=== PATIENT | female | born 1965 | race Caucasian/White ===

== ENCOUNTER 2019-09-19 13:06 | Inpatient (IN) | payer OTHER ==
[~2019-09-19] VITALS: Ht 170.2 cm; Wt 78.0 kg
[2019-09-19 13:29] VITALS: BP 135/87
[2019-09-19 13:33] LABS: URINE BLOOD NEGATIVE (Negative); URINE CLARITY CLEAR; URINE COLOR YELLOW; URINE GLUCOSE-RANDOM NEGATIVE (Negative); URINE KETONES NEGATIVE (Negative); URINE NITRITE-REFLEX NEGATIVE (Negative); URINE PROTEIN NEGATIVE (Negative); URINE SPECIFIC GRAVITY 1.015 (1.005-1.030)
[2019-09-19 13:34] LABS: ICTOTEST (BILI CONFIRMATORY) Negative (Negative); URINE BILIRUBIN 1+ (Negative); URINE LEUKOCYTES-REFLEX 2+ (Negative)
[2019-09-19 13:48] LABS: SQUAMOUS 4-10 Moderate /LPF (0-3)
[2019-09-19 13:49] LABS: BACTERIA-REFLEX >30 Many /HPF (None Seen); CASTS None Seen /LPF (None Seen); CRYSTALS None Seen /LPF (None Seen); URINE RBC None Seen /HPF (0-2); URINE WBC-REFLEX 6-15 Few /HPF (0-5)
[2019-09-19 13:50] LABS: AMORPHOUS URATES Few /LPF (None Seen)
[2019-09-19 14:02] LABS: ABSOLUTE BASOPHILS 0.1 thou/uL (0.0-0.2); ABSOLUTE EOSINOPHILS 0.2 thou/uL (0.0-0.7); ABSOLUTE LYMPHOCYTES 1.7 thou/uL (0.8-5.3); ABSOLUTE NEUTROPHILS 4.4 thou/uL (1.6-8.1); EOSINOPHILS 2.9 %; HEMATOCRIT 45.2 % (37.0-47.0); HEMOGLOBIN 15.8 gm/dL (12.0-15.0); LYMPHOCYTES 22.8 %; MCH 37.1 pg (26.0-34.0); MCHC 34.8 g/dL (28.0-37.0); MCV 106.5 fL (80.0-100.0); MONOCYTES 14.1 %; MPV 9.3 fl. (7.2-11.1); NUCLEATED RBCS 0 /100WBC; PLATELET COUNT* 71 thou/uL (150-400); POLYS 59.2 %; RBC 4.25 mil/uL (4.20-5.00); RDW-CV 13.8 % (10.5-14.5); WBC 7.4 thou/uL (4.0-11.0)
[2019-09-19 14:12] LABS: APTT 30.5 Seconds (25.0-31.3); CALCIUM 8.3 mg/dL (8.5-10.1); CREATININE 0.7 mg/dL (0.6-1.3); INR 1.2; POTASSIUM 3.3 mmol/L (3.5-5.1); PROTIME 12.7 Seconds (9.20-11.50)
[2019-09-19 14:16] LABS: ALBUMIN 2.7 g/dL (3.4-5.0); TOTAL BILIRUBIN 2.3 mg/dL (<0.1-1.0); TOTAL PROTEIN 7.6 g/dL (6.4-8.2)
[2019-09-19 16:04] VITALS: BP 120/71
[2019-09-19 16:42] VITALS: BP 142/76
--- NOTE | 2019-09-19 17:51 | NUR ---
PATIENT ARRIVED FROM ER AT 1615. PATIENT SETTLED TO ROOM. ASSESSMENT, HISTORY AND NVITALS COMPLETED AND DOCUMENTED. PATIENT DENIES ANY PAIN. PATIENT HAS EXCELLENT APPETITE. PATIENT IS UP AD ANDRES IN ROOM. PATIENT AWARE SHE IS TO HAVE NOTHING TO EAT OR DRINK AFTER MIDNIGHT FOR PARACENTESIS TOMORROW. PATIENT DENIES ANY NEEDS AT THIS TIME. CALL LIGHT WITHIN REACH.
[2019-09-19 19:05] LABS: MAGNESIUM 1.7 mg/dL (1.8-2.4); PHOSPHORUS* 3.6 mg/dL (2.5-4.9)
[2019-09-19 19:21] LABS: DIRECT BILIRUBIN 1.1 mg/dL (<0.1-0.3); TOTAL BILIRUBIN 2.2 mg/dL (<0.1-1.0)
[2019-09-19] MEDS ORDERED: FIBERCON625 M1 PO (19:33)
[2019-09-19 22:11] VITALS: BP 114/72
[2019-09-20 04:24] LABS: HEMATOCRIT 38.2 % (37.0-47.0); MCH 35.7 pg (26.0-34.0); MCHC 34.3 g/dL (28.0-37.0); MCV 104.2 fL (80.0-100.0); MPV 9.2 fl. (7.2-11.1); RBC 3.67 mil/uL (4.20-5.00); RDW-CV 13.3 % (10.5-14.5); WBC 6.3 thou/uL (4.0-11.0)
[2019-09-20 04:32] LABS: HEMOGLOBIN 13.1 gm/dL (12.0-15.0)
[2019-09-20 04:37] LABS: CALCIUM 8.1 mg/dL (8.5-10.1); CREATININE 0.7 mg/dL (0.6-1.3); POTASSIUM 3.6 mmol/L (3.5-5.1)
--- NOTE | 2019-09-20 05:10 | NUR ---
PATIENT REQUESTED SLEEP AID ABOUT 2200. ORDER RECEIVED FOR MELATONIN. PT UP AD ANDRES TO BATHROOM. PT DENIES PAIN. ABDOMEN FIRM, DISTENDED. PT MADE NPO AT MIDNIGHT FOR POSSIBLE PARENCENTISIS TODAY. FREQUENTLY USED ITEMS AND CALL LIGHT WITHIN REACH. SIDERAILS UPX2. WILL CONTINUE TO MONITOR.
--- NOTE | 2019-09-20 12:25 | NUR ---
PT A&OX3 VSS. PT RESTING IN ROOM WITH CALL LIGHT IN REACH. DIET ADVANCED TO HEART HEALTHY FOLLOWING PROCEDURE. PT TO U/S FOR EXAM OF R NECK. PT TO IR FOR PARACENTESIS OF ABDOMEN. RN REPORTED 2900 CC FLUID REMOVED DURING PROCEDURE. PT REQUESTING PAIN PILL, DR YEUNG NOTIFIED FOR ORDERS. REPORT CALLED TO MAYA CACERES OF TELE UNIT FOR TRANSFER OF PT CARE. PT PREVIOUSLY REPORTED DAILY ETOH USE UPON ADMISSION, PT TO BE MOVED TO TELE FOR OBSERVATION. PT TRANSPORTED IN WC WITH NURSING STAFF.
[2019-09-20 12:45] VITALS: BP 105/69
--- NOTE | 2019-09-20 12:50 | NUR ---
cm completed initial assessment to discuss d/c planning. pt lives at home. 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 NO hx w/HH of SNF. pt has support network. jay ariza/rosalba damon w/pt re: medicaid. cm to remain avail to assist as needed.
[2019-09-20 14:42] LABS: AMP/METHAMP Negative (Negative); BARBITURATES Negative (Negative); BENZODIAZEPINES Negative (Negative); COCAINE Negative (Negative); METHADONE Negative (Negative); OPIATES Negative (Negative); PCP Negative (Negative); THC Negative (Negative)
--- NOTE | 2019-09-20 16:26 | NUR ---
PT ARRIVED TO ROOM 233 AT APPROX 1215. PT A/O X4, C/O SOME ABDOMINAL PAIN, MEDS GIVEN PER DEC. I HAVE REVIEWED AND AGREE WTIH THE ASSESMENT OF CELESTINO CACERES FROM THIS AM. PT HAD BANDAID COVERING INCISION FROM PARACENTESIS TODAY. PT STATES "I DONT FEEL LIKE MY STOMACH HAS GONE DOWN AT ALL, HOW LONG DOES THAT TAKE." PTS ABDOMEN DISTENDED BUT SOFT. PT UP AD ANDRES. FLU SHOT GIVEN AND NICOTINE PATCH PROVIDED. PT CALLS APPROPRIALTY FOR NEEDS.
[2019-09-20 17:09] VITALS: BP 134/72
[2019-09-20 18:28] LABS: BF RBC <1000 /mm3; TOTAL CELL COUNT 499 /mm3
[2019-09-20 18:32] LABS: CLARITY HAZY; TOTAL VOLUME 2900 ml
[2019-09-20 19:22] LABS: BF LYMPHOCYTES 60 %; BF POLYS 40 %; BF TISSUE 25 /100 WBC; SOURCE ASCITES
[2019-09-20 19:23] LABS: BF OTHER CYTO TO FOLLOW
[2019-09-21 00:38] VITALS: BP 104/62
[2019-09-21 04:30] VITALS: BP 105/72
[2019-09-21 08:00] VITALS: BP 113/71
[2019-09-21 09:08] LABS: ABSOLUTE BASOPHILS 0.1 thou/uL (0.0-0.2); ABSOLUTE EOSINOPHILS 0.2 thou/uL (0.0-0.7); ABSOLUTE LYMPHOCYTES 1.6 thou/uL (0.8-5.3); ABSOLUTE MONOCYTES 0.7 thou/uL (0.0-1.2); ABSOLUTE NEUTROPHILS 4.2 thou/uL (1.6-8.1); BASOPHILS 1.4 %; EOSINOPHILS 3.1 %; HEMATOCRIT 43.3 % (37.0-47.0); LYMPHOCYTES 23.2 %; MCH 36.1 pg (26.0-34.0); MCV 103.1 fL (80.0-100.0); MONOCYTES 10.3 %; MPV 8.5 fl. (7.2-11.1); NUCLEATED RBCS 0 /100WBC; PLATELET COUNT* 87 thou/uL (150-400); RDW-CV 13.2 % (10.5-14.5); WBC 6.8 thou/uL (4.0-11.0)
[2019-09-21 09:09] LABS: HEMOGLOBIN 15.2 gm/dL (12.0-15.0)
[2019-09-21 09:22] LABS: ALBUMIN 2.5 g/dL (3.4-5.0); CALCIUM 8.3 mg/dL (8.5-10.1); CREATININE 0.7 mg/dL (0.6-1.3); POTASSIUM 3.3 mmol/L (3.5-5.1); TOTAL PROTEIN 7.2 g/dL (6.4-8.2)
[2019-09-21 11:11] LABS: HEPATITIS B SURFACE AG Negative (Negative)
[2019-09-21 12:16] VITALS: BP 109/79
[2019-09-21 16:23] VITALS: BP 124/72
--- NOTE | 2019-09-21 16:54 | NUR ---
ASSUMED PT CARE AT 0730, FULL ASSESMENT DONE CHARTED. PT A/O X4, DENIES ABDOMINAL PAIN, VSS, SR ON THE MONITOR. PT MADE NPO THIS AM AND HAD NECK LYMPH BIOPSY AND ABD US THIS AFTERNOON. PT TO HAVE EGD TOMORROW. NPO AFTER MIDNIGHT. ATTEMPTED TO REPLACE K+ IV, PT C/O BURNING, WILL SWITCH TO PO WHEN NOT NPO. PT UPDATED ON PLAN, FAMILY AT BEDSIDE. REPORT GIVEN TO LUCAS CACERES.
[2019-09-22] VITALS: BP 118/70
[2019-09-22 04:00] VITALS: BP 107/72
[2019-09-22 04:25] LABS: INR 1.4; PROTIME 14.3 Seconds (9.20-11.50)
[2019-09-22 04:31] LABS: ABSOLUTE BASOPHILS 0.1 thou/uL (0.0-0.2); ABSOLUTE EOSINOPHILS 0.2 thou/uL (0.0-0.7); ABSOLUTE LYMPHOCYTES 1.7 thou/uL (0.8-5.3); ABSOLUTE MONOCYTES 0.8 thou/uL (0.0-1.2); ABSOLUTE NEUTROPHILS 4.4 thou/uL (1.6-8.1); BASOPHILS 0.9 %; EOSINOPHILS 2.7 %; HEMOGLOBIN 13.4 gm/dL (12.0-15.0); LYMPHOCYTES 23.3 %; MCH 35.7 pg (26.0-34.0); MCHC 34.4 g/dL (28.0-37.0); MCV 103.9 fL (80.0-100.0); MONOCYTES 11.4 %; MPV 8.6 fl. (7.2-11.1); NUCLEATED RBCS 0 /100WBC; PLATELET COUNT* 88 thou/uL (150-400); POLYS 61.7 %; RBC 3.76 mil/uL (4.20-5.00); RDW-CV 13.2 % (10.5-14.5); WBC 7.1 thou/uL (4.0-11.0)
[2019-09-22 04:49] LABS: ALBUMIN 2.2 g/dL (3.4-5.0); CALCIUM 8.1 mg/dL (8.5-10.1); CREATININE 0.6 mg/dL (0.6-1.3); POTASSIUM 3.4 mmol/L (3.5-5.1); TOTAL BILIRUBIN 1.4 mg/dL (<0.1-1.0); TOTAL PROTEIN 6.3 g/dL (6.4-8.2)
[2019-09-22 05:10] LABS: % SATURATION 21 % (20-39); IRON 48 ug/dL (50-175)
[2019-09-22 08:00] VITALS: BP 113/71
[2019-09-22 10:30] VITALS: BP 113/71
[2019-09-22 13:41] LABS: ABSOLUTE BASOPHILS 0.1 thou/uL (0.0-0.2); ABSOLUTE EOSINOPHILS 0.2 thou/uL (0.0-0.7); ABSOLUTE LYMPHOCYTES 1.4 thou/uL (0.8-5.3); ABSOLUTE MONOCYTES 0.6 thou/uL (0.0-1.2); ABSOLUTE NEUTROPHILS 4.2 thou/uL (1.6-8.1); BASOPHILS 0.8 %; EOSINOPHILS 2.5 %; HEMATOCRIT 41.3 % (37.0-47.0); HEMOGLOBIN 14.3 gm/dL (12.0-15.0); MCHC 34.7 g/dL (28.0-37.0); MCV 103.6 fL (80.0-100.0); MONOCYTES 8.8 %; MPV 8.6 fl. (7.2-11.1); NUCLEATED RBCS 0 /100WBC; PLATELET COUNT* 90 thou/uL (150-400); POLYS 65.9 %; RBC 3.98 mil/uL (4.20-5.00); RDW-CV 13.4 % (10.5-14.5); WBC 6.4 thou/uL (4.0-11.0)
[2019-09-22 13:59] LABS: ALBUMIN 2.4 g/dL (3.4-5.0); CALCIUM 8.5 mg/dL (8.5-10.1); CREATININE 0.6 mg/dL (0.6-1.3); POTASSIUM 3.8 mmol/L (3.5-5.1); TOTAL BILIRUBIN 1.4 mg/dL (<0.1-1.0); TOTAL PROTEIN 6.9 g/dL (6.4-8.2)
--- NOTE | 2019-09-22 14:24 | NUR ---
CONTINUE TO FOLLOW, MET WITH PT RE: REF FROM DR WALTERS TO ASSIST WITH RESOURCES. PER [employer], PT NOT ELIGIBLE FOR MEDICAID, STILL WORKING. PT STATES SHE HAS LOW INCOME. GAVE RESOURCES FOR [facility] [employer], MEDICAID APPLICATION, [employer] DISABILITY [facility] RESOURCES. PT ASKING TO GO HOME TODAY AND WANTING ASSIST WITH SCRIPTS AT DC. NO DC ORDERS FOR TODAY NOTED. UPDATED RN
[2019-09-22 16:00] VITALS: BP 104/66
[2019-09-22 17:11] LABS: BODY FLUID PROTEIN 1.7 g/dL (())
[2019-09-22 18:06] LABS: IgA 654 mg/dL (87-352); IgG 1410 mg/dL (700-1600); IgM 467 mg/dL (26-217)
--- NOTE | 2019-09-22 18:42 | NUR ---
ASSUMED PT CARE AT 0730. ABLE TO MAKE NEEDS KNOWN. NO C/O PAIN OR DISCOMFORT. PT HAD EGD TODAY, SEE RESULTS. STARTED NEW MEDICATIONS AND WANTED PT TO STAY AN EXTRA DAY TO MONITOR SIDE EFFECTS. PT RESTING IN BED WITH FAMILY AT THIS TIME. FLAT AFFECT, UPSET THAT SHE HAD TO STAY ANOTHER DAY. WILL CONTINUE TO MONITOR.
[2019-09-22 20:00] VITALS: BP 109/75
--- NOTE | 2019-09-22 20:00 | NUR ---
RECEIVED REPORT AND ASSUMED CARE OF PT, ASSESSMENT COMPLETED. NO COMPLAINTS VOCIED. TELEMETRY ON SHOWING SR. ANXIOUS TO GO HOME BUT KNOWS BP NEEDS TO BE MONITORED DUE TO NEW MEDS. WILL CONT TO MONITOR AND ASSIST NEEDED.
[2019-09-22 22:59] LABS: SOURCE PERITONEAL
[2019-09-23] VITALS: BP 89/57
[2019-09-23 04:00] VITALS: BP 89/54
--- NOTE | 2019-09-23 06:14 | NUR ---
AWAKE OCC DURING NIGHT. GAIT STEADY TO AND FROM BR. NO CHANGE IN ASSESSMENT. TELEMETRY CONT TO SHOW SR. HS GOALS OF REST AND SAFETY ACHIEVED. HOURLY ROUNDING OBSERVED.
[2019-09-23 08:00] VITALS: BP 83/48
[2019-09-23] MEDS ORDERED: PROPRANOLOL 1010 MG PO (10:48)
[2019-09-23] MEDS ORDERED: LASIX 40 MG TAB40 MG PO (10:50)
[2019-09-23] MEDS ORDERED: ALDACTONE100 MG PO (10:51)
[2019-09-23 12:08] LABS: CERULOPLASMIN 28.1 mg/dL (19.0-39.0)
[2019-09-23 12:23] VITALS: BP 92/62
[2019-09-23] MEDS ORDERED: LEVAQUIN 500 M500 M1 PO (12:37)
[2019-09-23] MEDS ORDERED: PRENATAL PO (12:37)
[2019-09-23] MEDS ORDERED: HYDROCODON-ACE1 EAC7 PO (12:37)
[2019-09-23] MEDS ORDERED: SPIRONOLACTONE25 MG PO (12:37)
[2019-09-23] MEDS ORDERED: INDERAL 20 MG T20 M1 PO (12:37)
[2019-09-23 13:10] LABS: ANA INTERPRETATION Positive (Negative)
[2019-09-23 13:14] VITALS: BP 92/62
--- NOTE | 2019-09-23 14:07 | PATH ---
[address] [address] PATHOLOGY RPT PROCEDURE Name: SILVANA MEEKS Room: [place] [address] ADM IN .R.#: [id number] Admission: 09/19/19 Date of : 63 Discharge: Report #: [id number] Path Case #: [id number] Note [facility] Accession Number: [id number] TESTS RESULT FLAG UNITS REF RANGE LAB Clinician Provided Cytology Information No. of containers..01 Other (Miscellaneous) Source: ASCITES RUQ DIAGNOSIS: 02 ASCITES RUQ NEGATIVE FOR MALIGNANT CELLS. REACTIVE MESOTHELIAL CELLS AND INFLAMMATORY CELLS, PREDOMINANTLY CHRONIC. THIS INTERPRETATION INCLUDES EVALUATION OF A CELL BLOCK. Signed out by: 02 Elkin Blair MD, Pathologist NPI- [id number] Performed by: 01 Samra Chan, [employer] ([facility]) Gross description: 01 35ML, YELLOW, CLOUDY /LCS 09/20/2019 1729 Local FLAG LEGEND: L-Low Normal,H-High Normal,LL-Alert Low,HH-Alert High <-Panic Low,>-Panic High,A-Abnormal,AA-Critical Abnormal Performed at: [address] [place] [address] Tino Mccord MD, [address] [place] [phone] Eklin Blair MD, Specimen Comment: A courtesy copy of this report has been sent to [phone] Specimen Comment: [id number] Specimen Comment: Report sent to Performed at: [address], [place], [place] [id number] MD Tino Mccord MD Phone: [phone]
--- NOTE | 2019-09-23 14:59 | NUR ---
ASSUMED PT CARE AT 0730. ASSESSMENT COMPLETED CHARTED. ABLE TO MAKE NEEDS KNOWN. DISCHARGE APPROVED, NO C/O PAIN OR DISCOMFORT. UP AD ANDRES IN ROOM. IV AND HEART MONITOR REMOVED. RESTING IN BED AT THIS TIME WAITING ON HER RIDE. PAPERWORK COMPLETED AND SIGNED. NO COMMENTS, QUESTIONS, OR CONCERNS NOTED.
--- NOTE | 2019-09-23 15:11 | NUR ---
ORDERS NOTED FOR DC, MET WITH PT. STATES UNABLE TO AFFORD MEDS. WAS ABLE TO ASSIST PT WITH 4 OF HER SCRIPTS. ATTEMPTED TO FAX TO [facility] UNDER ASSISTANCE PROGRAM BUT FAX WOULDN'T GO THRU AFTER MULTIPLE ATTEMPTS. NURSE TO GIVE PT COPY OF FORM AND SCRIPTS CALLED INTO [facility] FOR 1 MONTH SUPPLY OF LASIX, SPIRONOLACTONE, LEVAQUIN-7DAYS AND PROPANOLOL. PT AWARE. HAS OTHER RESOURCES.
--- NOTE | 2019-09-23 18:06 | PATH ---
[address] [address] PATHOLOGY RPT PROCEDURE Name: AMAYA MEEKS Room: [address] IN M.R.#: [id number] Admission: 09/19/19 Date of : 63 Discharge: 09/23/19 Report #: [id number] Path Case #: [id number] [facility] Accession Number: [id number] . 01 Material submitted: . lymph node - LYMPH NODE, RIGHT NECK. Modifiers: right, neck . 01 Clinical history: . Right neck mass 1.69 x 2.05 x 1.32 cm . 02 Diagnosis: Tissue submitted as "lymph node, right neck", image guided biopsy: - Scant benign hyperkeratotic squamous epithelium and keratin debris suggesting epidermal inclusion cyst, without lymphoid tissue present. See comment. (ROSANA:elis; 09/23/2019) QTP 09/23/2019 1354 Local . 02 Comment: Sections of the right neck "lymph node" show a fragment of benign non-atypical squamous epithelium with prominent hyperkeratosis as well as abundant keratotic debris, without parakeratosis or atypia seen and is most consistent with an epidermal inclusion cyst although the differential would include a branchial cleft cyst. . Flow cytometry studies are pending on the specimen submitted in RPMI and will be the subject of an addendum report. (ROSANA:pit; 09/23/2019) . 02 Electronically signed: . Elkin Blair MD, Pathologist NPI- [id number] . 01 Gross description: . Received in formalin labeled "Amaya Meeks, lymph node-right neck," are multiple segments of ching soft tissue measuring 0.4 x 0.2 x 0.1 cm in aggregate dimensions. The specimen is filtered and entirely submitted in cassette A1. . Received in RPMI solution labeled "Amaya Meeks, right node right neck," is a single needle core of ching soft tissue measuring approximately 0.8 cm in length and less than 0.1 cm diameter. The specimen is forwarded to an outside laboratory for further testing. (TSD; 09/21/2019) TOB/TOB 09/23/2019 1032 Local . 02 Pathologist provided ICD-10: [place] [address] PATHOLOGY RPT PROCEDURE Name: AMAYA MEEKS Room: [place] [address] DIS IN M.R.#: [id number] Admission: 09/19/19 Date of : 63 Discharge: 09/23/19 Report #: [id number] Path Case #: [id number] R22.1, L98.8 . 02 CPT . 924491 Specimen Comment: A courtesy copy of this report has been sent to [phone] Specimen Comment: [phone] Specimen Comment: Report sent to and Dr.DE ROBER VALLECILLO Performed at: [address] [facility] [address], [place], [place] [id number] MD Tino Mccord MD Phone: [phone] Performed at: 02 [facility] [place] [facility] Jennifer Kruse, [place] [id number] MD Elkin Blair MD Phone: [phone]
--- NOTE | 2019-09-24 22:46 | CON ---
[address] [address] CONSULTATION Name: MEEKSSILVANA Mt Room: [address] IN M.R.#: [id number] Admission: 09/19/19 Attend Phys: Alexis Ramirez Discharge: 09/23/19 Date of : 63 Report #: [id number] THIS REPORT FOR: //name// CC: MICHAEL physician/PCP Alexis Gonzales DICTATED BY: Zuleika Garcia [facility] DATE OF SERVICE: 09/21/2019 The patient does not have a PCP. Please note at the time of this dictation, the patient was seen and physically examined by myself. REASON FOR CONSULTATION: Cirrhosis and abdominal pain. HISTORY OF PRESENT ILLNESS: This 54-year-old female presenting to the Emergency Room with having 8 days of abdominal bloating and distention. She states it was becoming more uncomfortable. She was having some intermittent gas and she has never had this happened before. She denies any constipation or diarrhea. She states she did go to [place] a couple of years ago and she thought she had a colonoscopy or something was wrong with her colon at that time. In reviewing her records, it was noted that she had acute diverticulitis in the sigmoid colon. She was treated with Cipro and Flagyl at that time. She has not ever had an EGD or colonoscopy done in the past. It is also noted that the patient does drink 6 beers typically daily and has for quite some time. ALLERGIES: No known drug allergies. MEDICATIONS FROM HOME: None. PAST MEDICAL HISTORY: Negative except for diverticulitis in 10/2016. PAST SURGICAL HISTORY: Negative. FAMILY HISTORY: Negative for any GI or female cancers. SOCIAL HISTORY: She does smoke a half a pack per day and she drinks 6 beers on a daily basis. REVIEW OF SYSTEMS: Twelve-point review of systems is essentially negative except what is mentioned in the HPI. PHYSICAL EXAMINATION: VITAL SIGNS: Temperature 36.8, pulse 82, respirations 18, [place] [address] CONSULTATION Name: MEEKSSILVANA Mt Room: [address] IN [facility].#: [id number] Admission: 09/19/19 Attend Phys: Alexis franco yesy [place] Discharge: 09/23/19 Date of : 63 Report #: [id number] 105/72. HEART: Regular rate and rhythm. LUNGS: Diminished, but clear. ABDOMEN: Soft, positive bowel sounds in all 4 quadrants with no masses or tenderness noted. LABORATORY DATA: Hemoglobin 15.2, white count is 6.8, MCV is 103. GFR is 87. PT is 12.7 and INR is 1.2. Total bilirubin 2, alkaline phosphatase 143, ALT is 26, AST is 58. CT of the abdomen and pelvis shows cirrhosis with moderate amount of abdominal and pelvic ascites, shows lobulated masses in the lumen of the gallbladder with probable represent radiolucent gallstones rather than polyps or gallbladder neoplasm, diverticulosis noted of the left colon. The patient had a paracentesis done yesterday, 2900 mL pulled off and waiting for culture and sensitivity as well as total protein and bilirubin on her ascitic fluid. IMPRESSION: 1. Cirrhosis. 2. Ascites. 3. Abnormal CT of the gallbladder. 4. Thrombocytopenia. 5. Alcohol abuse. 6. Right neck mass. PLAN: 1. Ultrasound of the abdomen to evaluate her gallbladder thoroughly. 2. EGD tomorrow. 3. Recommend colon since she has never had one. 4. Await labs regarding her ascitic fluid. 5. Further recommendations to be made after Dr. Merritt sees the patient later today. Thank you for allowing us to participate in this patient's care. Please do not hesitate to call with any questions in regard to this consult. <ELECTRONICALLY SIGNED> By: Hiram Merritt DO 09/24/19 2246 [id number] [id number] Merritt DO /nt
== END 2019-09-23 14:50 | disposition home or self-care (01) | DRG 433 ==
LOC: M.ERS 13:06 → M.2W 15:10 → M.TBA-ER 15:10 → M.3W 16:38 → M.2W 09-20 12:40
PROVIDERS: Internal Medicine; Internal Medicine Gastroenterology; Nurse Practitioner Family; ADMIT Family Medicine
PROC: 0W9G3ZZ Drainage of Peritoneal Cavity, Percutaneous Approach (ICD-10-PCS; principal; 2019-09-20)
PROC: 0HB4XZX Excision of Neck Skin, External Approach, Diagnostic (ICD-10-PCS; 2019-09-21)
PROC: 0DJ08ZZ Inspection of Upper Intestinal Tract, Via Natural or Artificial Opening Endoscopic (ICD-10-PCS; 2019-09-22)
DX: K70.31 Alcoholic cirrhosis of liver with ascites (principal); N39.0 Urinary tract infection, site not specified; I85.10 Secondary esophageal varices without bleeding; K76.6 Portal hypertension; F17.210 Nicotine dependence, cigarettes, uncomplicated; F10.10 Alcohol abuse, uncomplicated; D75.89 Other specified diseases of blood and blood-forming organs; E80.6 Other disorders of bilirubin metabolism; R22.1 Localized swelling, mass and lump, neck; D69.6 Thrombocytopenia, unspecified; K70.10 Alcoholic hepatitis without ascites; K31.89 Other diseases of stomach and duodenum; Z79.899 Other long term (current) drug therapy; Z23 Encounter for immunization